=== PATIENT | male | born 1935 | race Caucasian/White ===

== ENCOUNTER → 2020-03-10 11:09 | Outpatient (BNVA) | payer MEDICARE, MEDICAID, SELFPAY | PROVIDERS: PCP Internal Medicine; Visit Provider Internal Medicine | DX: I26.99 Other pulmonary embolism without acute cor pulmonale (principal); Z51.81 Encounter for therapeutic drug level monitoring; Z79.01 Long term (current) use of anticoagulants | CPT/HCPCS: 85610; 99211 ==

== ENCOUNTER 2020-03-18 09:19 | Outpatient (REF) | payer MEDICARE, MEDICAID, SELFPAY ==
[2020-03-18 11:06] LABS: Prostate Specific Antigen 0.11 ng/mL (<0.05-4.0)
== END 2020-03-18 09:20 | disposition home or self-care (01) ==
LOC: HO.LAB 09:19
PROVIDERS: PCP Internal Medicine; Visit Provider Urology
DX: C61 Malignant neoplasm of prostate (principal)
CPT/HCPCS: 84153

== ENCOUNTER → 2020-03-29 11:26 | Outpatient (BNVA) | payer MEDICARE, MEDICAID, SELFPAY | PROVIDERS: PCP Internal Medicine; Visit Provider Internal Medicine | DX: I26.99 Other pulmonary embolism without acute cor pulmonale (principal); Z51.81 Encounter for therapeutic drug level monitoring; Z79.01 Long term (current) use of anticoagulants | CPT/HCPCS: 85610; 99211 ==

== ENCOUNTER → 2020-04-02 11:26 | Outpatient (BNVA) | payer MEDICARE, MEDICAID, SELFPAY | PROVIDERS: PCP Internal Medicine; Referring Provider Internal Medicine; Visit Provider Internal Medicine | DX: I26.99 Other pulmonary embolism without acute cor pulmonale (principal); Z51.81 Encounter for therapeutic drug level monitoring; Z79.01 Long term (current) use of anticoagulants | CPT/HCPCS: 85610; 99211 ==

== ENCOUNTER 2020-04-06 06:14 | Day surgery (SDC) | payer MEDICARE, MEDICAID, SELFPAY ==
[2020-03-18 11:53] VITALS: BMI 24.4
--- NOTE | 2020-03-19 09:25 | P.CONAN_ITS ---
HPI - Anesthesia Eval Consult details Narrative: 85yo M for cystoscopy [facility] Past Medical History Medical History (Updated 03/19/20 @ 09:42 by Prisca Mendiola) Angina pectoris Atrial fibrillation with rapid ventricular response Back pain Cardiomyopathy DVT (deep venous thrombosis) GERD (gastroesophageal reflux disease) Heart failure with reduced ejection fraction History of prostate cancer HTN (hypertension) Hx of osteoarthritis Hx of ventricular tachycardia Hx pulmonary embolism Hyperlipidemia Presence of combination internal cardiac defibrillator (ICD) and pacemaker Pure hypercholesterolemia Surgical History Surgical History (Updated 03/18/20 @ 12:03 by Janette Woods) Hx of colonoscopy Social History Social History Smoking Status: Unknown if ever smoked Advance Directives: No Advance Directives Information Provided: Yes Meds Allergies Allergy/AdvReac Type Severity Reaction Status Date / Time bacitracin Allergy Intermediate RASH Unverified 03/18/20 11:44 [From NEOSPORIN ([id number])] neomycin Allergy Intermediate RASH Unverified 03/18/20 11:44 [From NEOSPORIN ([id number])] polymyxin B Allergy Intermediate RASH Unverified 03/18/20 11:44 [From NEOSPORIN ([id number])] amoxicillin [Augmentin] Allergy Unknown rash Verified 03/18/20 11:44 clavulanic acid [Augmentin] Allergy Unknown rash Verified 03/18/20 11:44 Home Medications Medication Instructions Recorded Confirmed Type benzonatate 150 mg PO TID 03/18/20 03/18/20 History cholecalciferol (vitamin D3) 1 tab PO DAILY 03/18/20 03/18/20 History cyanocobalamin (vitamin B-12) 1,000 mcg PO DAILY 03/18/20 03/18/20 History esomeprazole magnesium 1 cap PO DAILY 03/18/20 03/18/20 History hydroxyzine HCl 1 tab PO BEDTIME PRN 03/18/20 03/18/20 History pantoprazole 1 tab PO DAILY 03/18/20 03/18/20 History sennosides [Senna Laxative] 2 tab PO BEDTIME 03/18/20 03/18/20 History torsemide 1 tab PO DAILY 03/18/20 03/18/20 History trazodone 1 tab PO BEDTIME PRN 03/18/20 03/18/20 History Exam Exam Date and Time: March 19, 2020 0925 Height,Weight and Vital Signs: Height 5 ft 3 in Weight 62.596 kg Assessment and Plan Assessment Anesthesia Assessment: Chart Reviewed
--- NOTE | 2020-04-05 12:00 | HO.ANESPROP2 ---
Documented by User: Prisca Mendiola 04/05/20 14:23 HPI - Anesthesia Eval Consult details Narrative: 85yo M for Cystoscopy,Poss Laser Bladder Neck,Poss Internal Uretherotomy PMFSH Past Medical History Medical History (Updated 03/19/20 @ 09:42 by Prisca Mendiola) Angina pectoris Atrial fibrillation with rapid ventricular response Back pain Cardiomyopathy DVT (deep venous thrombosis) GERD (gastroesophageal reflux disease) Heart failure with reduced ejection fraction History of prostate cancer HTN (hypertension) Hx of osteoarthritis Hx of ventricular tachycardia Hx pulmonary embolism Hyperlipidemia Presence of combination internal cardiac defibrillator (ICD) and pacemaker Pure hypercholesterolemia Surgical History Surgical History (Updated 03/18/20 @ 12:03 by Janette Woods) Hx of colonoscopy Social History Social History Smoking Status: Unknown if ever smoked Use of substances other than those prescribed or required for medical reasons: No Advance Directives: No Advance Directives Information Provided: No Advance Directives on File: No Meds Allergies Allergy/AdvReac Type Severity Reaction Status Date / Time bacitracin Allergy Intermediate RASH Verified 03/29/20 11:39 [From NEOSPORIN ([id number])] neomycin Allergy Intermediate RASH Verified 03/29/20 11:39 [From NEOSPORIN ([id number])] polymyxin B Allergy Intermediate RASH Verified 03/29/20 11:39 [From NEOSPORIN ([id number])] amoxicillin [Augmentin] Allergy Unknown rash Verified 03/29/20 11:39 clavulanic acid [Augmentin] Allergy Unknown rash Verified 03/29/20 11:39 Home Medications Medication Instructions Recorded Confirmed Type benzonatate 150 mg PO TID 03/18/20 04/02/20 History cyanocobalamin (vitamin B-12) 1,000 mcg PO DAILY 03/18/20 04/02/20 History esomeprazole magnesium 1 cap PO DAILY 03/18/20 04/02/20 History hydroxyzine HCl 1 tab PO BEDTIME PRN 03/18/20 04/02/20 History pantoprazole 1 tab PO DAILY 03/18/20 04/02/20 History sennosides [Senna Laxative] 2 tab PO BEDTIME 03/18/20 04/02/20 History torsemide 1 tab PO DAILY 03/18/20 04/02/20 History trazodone 1 tab PO BEDTIME PRN 03/18/20 04/02/20 History brimonidine 0.2 % eye drops 1 drp OPHTHALMIC (EYE) BID 04/02/20 04/02/20 History hydrocortisone 2.5 % topical cream applic TOPICAL DAILY 04/02/20 04/02/20 History Entresto 04/06/20 History Exam Exam Date and Time: April 05, 2020 1200 Height,Weight and Vital Signs: Height 5 ft 3 in Weight 62.596 kg Pertinent Lab Results Pertinent Lab Results: Laboratory Tests 10/15/19 10/15/19 02/03/20 11:20 11:20 15:06 WBC 7.8 Hgb 12.4 L Hct 38.0 L Plt Count 167 Potassium 3.8 Chloride 104 BUN 16 Creatinine 1.39 Narrative Narrative: Echo 03/2019: LVEF 45-50%, nml LV chamber size, mild conc LVH, global hypokenisis, Nml RV and mildly reduced RV global systolic function, No signif valve dysfunction ICD 07/2019: BIOTRONIK, VVI 40; VP0%, No new arrhythmias noted, Nml Device function Documented by User: Eddie Macario 04/06/20 08:12 PMFSH Past Medical History Medical History (Updated 03/19/20 @ 09:42 by Prisca Mendiola) Angina pectoris Atrial fibrillation with rapid ventricular response Back pain Cardiomyopathy DVT (deep venous thrombosis) GERD (gastroesophageal reflux disease) Heart failure with reduced ejection fraction History of prostate cancer HTN (hypertension) Hx of osteoarthritis Hx of ventricular tachycardia Hx pulmonary embolism Hyperlipidemia Presence of combination internal cardiac defibrillator (ICD) and pacemaker Pure hypercholesterolemia Surgical History Surgical History (Updated 03/18/20 @ 12:03 by Janette Woods) Hx of colonoscopy Social History Social History Smoking Status: Unknown if ever smoked Use of substances other than those prescribed or required for medical reasons: No Advance Directives: No Advance Directives Information Provided: No Advance Directives on File: No Meds Allergies Allergy/AdvReac Type Severity Reaction Status Date / Time bacitracin Allergy Intermediate RASH Verified 03/29/20 11:39 [From NEOSPORIN ([id number])] neomycin Allergy Intermediate RASH Verified 03/29/20 11:39 [From NEOSPORIN ([id number])] polymyxin B Allergy Intermediate RASH Verified 03/29/20 11:39 [From NEOSPORIN ([id number])] amoxicillin [Augmentin] Allergy Unknown rash Verified 03/29/20 11:39 clavulanic acid [Augmentin] Allergy Unknown rash Verified 03/29/20 11:39 Home Medications Medication Instructions Recorded Confirmed Type benzonatate 150 mg PO TID 03/18/20 04/02/20 History cyanocobalamin (vitamin B-12) 1,000 mcg PO DAILY 03/18/20 04/02/20 History esomeprazole magnesium 1 cap PO DAILY 03/18/20 04/02/20 History hydroxyzine HCl 1 tab PO BEDTIME PRN 03/18/20 04/02/20 History pantoprazole 1 tab PO DAILY 03/18/20 04/02/20 History sennosides [Senna Laxative] 2 tab PO BEDTIME 03/18/20 04/02/20 History torsemide 1 tab PO DAILY 03/18/20 04/02/20 History trazodone 1 tab PO BEDTIME PRN 03/18/20 04/02/20 History brimonidine 0.2 % eye drops 1 drp OPHTHALMIC (EYE) BID 04/02/20 04/02/20 History hydrocortisone 2.5 % topical cream applic TOPICAL DAILY 04/02/20 04/02/20 History Entresto 04/06/20 History Exam Airway Mallampati Class: III TM Dist: >3cm Neck ROM: Full Loose/Missing/Broken Teeth: Yes (Edentulous) Heart: RRR Assessment and Plan Assessment Anesthesia Assessment: Anesthesia Plan Discussed Final Anesthetic Review NPO: Yes ASA Class: IV Final Preanesthetic Review: Consent Obtained/Reviewed (Daughter signed) Anesthetic Plan Anesthetic Plan: GA Disposition: Standard PACU
[2020-04-06] VITALS (15 sets, daily range): BP systolic 108–167; BP diastolic 47–75; PULSE 65–93; RESP 16–20; TEMP 36.1–36.7; O2SAT 96–100
[2020-04-06 07:28] LABS: INTERNATIONAL NORM RATIO 1.4 (0.9-1.1); Prothrombin Time 16.8 SEC (10.8-13.0)
[2020-04-06] MEDS: Gentamicin Sulfate/NaCl 80 MG/100 ML PIGGYBACK 100 MG IV (07:38)
[2020-04-06] MEDS: levoFLOXacin/D5W 500 MG/100 ML PIGGYBACK 100 MG IV (07:39)
[2020-04-06] MEDS: Albuterol/Iprat 2.5/0.5MG 3 ML AMPUL.NEB INHALE (08:28)
--- NOTE | 2020-04-06 08:32 | PC.NURSE ---
patient receving resp treatment in pressured room. patient to go second not first. family and patient aware of plan of care.
--- NOTE | 2020-04-06 10:22 | PM.OP ---
Brief Operative Note Date of procedure: 04/06/20 Pre-op diagnosis: bph regrowth Post-op diagnosis: same Procedure: redo laser TURP Implants: foely catheter Surgeon: Benny Stephenson MD Anesthesia: GLMA Estimated blood loss (mL): 10 Pathology: other (prostate) Condition: stable Disposition: same day
[2020-04-06] MEDS: traMADoL HCL 50 MG TABLET PO (10:37)
--- NOTE | 2020-04-06 10:37 | P.OP_ITS ---
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 Presented to the office with difficulty with urination. On cystoscopy in the office the appeared to be narrowing of bladder neck. Recommendation for cystoscopy with laser of bladder neck. Appear to have prior prostate procedure. Procedure: After informed consent was verified patient brought to the operating room placed in a supine position. Anesthesia administered per protocol. Patient tasha nelda in a modified dorsal lithotomy position and prepped and draped in sterile fashion. Safety pause performed. Antibiotics have been given. Twenty-one Bhutanese cystoscope inserted per urethra. At the prostatic apex year appeared to be some rigidity in narrowing. We placed a Sensor guidewire. We then followed the Sensor guidewire we could see there was recurrent prostate growth particularly on the left side that was causing a form of obstruction. The bladder neck itself was open. The cystoscope was removed. A laser cystoscope was placed. Using a dual wavelength laser the recurrent tissue was ablated and enucleated on the left side wall. Once this was complete the bladder was irrigated in tissue obtained for pathology. A [address] Muir catheter was placed in the balloon placed on gentle traction until he arrives at the recovery area. The bladder had been irrigated and sample sent. he tolerated the procedure well was extubated in operating room and transferred in stable condition to recovery area. Pathology. Prostate tissue Drain. Twenty-two Bhutanese Muir catheter.
[2020-04-06] MEDS: fentaNYL citrate/PF 100 MCG/2 ML VIAL 25 MCG IVPUSH (11:13)
--- NOTE | 2020-04-06 14:08 | HO.POSTANES ---
Post Anesthesia Evaluation Post Anesthesia Evaluation Vital Signs: Vital Signs Temp Pulse Resp BP Pulse Ox 04/06/20 12:37 97.0 F 79 18 108/47 L 100 04/06/20 12:22 93 19 163/58 H 100 04/06/20 12:07 78 20 167/62 H 96 04/06/20 11:52 80 20 151/70 H 97 04/06/20 11:37 81 19 150/69 H 99 04/06/20 11:22 77 20 149/52 H 100 04/06/20 11:13 18 04/06/20 11:11 73 20 164/52 H 99 04/06/20 11:00 80 20 148/72 H 100 04/06/20 10:49 77 20 135/63 100 04/06/20 10:44 84 20 134/62 100 04/06/20 10:39 76 19 129/68 100 04/06/20 10:34 77 17 145/69 H 99 04/06/20 10:29 97.0 F 77 18 145/75 H 97 04/06/20 07:31 98.0 F 65 16 114/54 L 100 Anesthesia: General LMA Mental Status: Awake Pain Control: Satisfactory Nausea/Vomiting: None Hydration: Adequate Anesthesia-Related Issues: No Anes. Related Issues
--- NOTE | 2020-04-06 15:28 | PC.NURSE ---
POST OP INSTRUCTIONS AND VAUGHN CATHETER CARE INSTRUCTIONS GIVEN TO , HAS DONE THIS BEFORE BUT IT HAS BEEN MANY YEARS PER HER STATEMENT, REQUESTING PAIN MED, CALL TO DR TUNG NGUYEN FOR TRAMADOL TO BE SENT TO THE PHARMACY. PAIN 410 ON DISCHARGE
== END 2020-04-06 14:00 | disposition home or self-care (01) ==
PROVIDERS: Nurse Practitioner; PCP Internal Medicine; Visit Provider Urology
PROC: 0TJB8ZZ Inspection of Bladder, Via Natural or Artificial Opening Endoscopic (ICD-10-PCS; CPT 52000; principal; 2020-04-06 08:30)
DX: C67.5 Malignant neoplasm of bladder neck (principal); N40.1 Benign prostatic hyperplasia with lower urinary tract symptoms; R39.198 Other difficulties with micturition; R31.0 Gross hematuria; Z85.46 Personal history of malignant neoplasm of prostate; I11.0 Hypertensive heart disease with heart failure; I50.20 Unspecified systolic (congestive) heart failure; I48.91 Unspecified atrial fibrillation; Z95.810 Presence of automatic (implantable) cardiac defibrillator; Z86.711 Personal history of pulmonary embolism; Z86.718 Personal history of other venous thrombosis and embolism; Z79.01 Long term (current) use of anticoagulants; Z79.899 Other long term (current) drug therapy; Z88.1 Allergy status to other antibiotic agents
CPT/HCPCS: 52649; 36415; 85610; 88305; 88341; 88342; C1769; J0131; J1580; J1956; J2250; J3010

== ENCOUNTER 2020-04-08 12:43 | Emergency (ER) | payer MEDICARE, MEDICAID, SELFPAY ==
[2020-04-08 13:02] VITALS: BP 128/36; PULSE 91; RESP 18; TEMP 37.1; O2SAT 95; BMI 20.6
--- NOTE | 2020-04-08 13:09 | XR_ITS ---
EXAMINATION: XR KNEE, RIGHT CLINICAL INFORMATION: Right knee swelling and pain. No known trauma COMPARISON: Radiographs right knee 07/22/2016. TECHNIQUE: The right knee is imaged portably in AP and 2 lateral views. FINDINGS: There is no fracture, dislocation, destructive process. Moderate suprapatellar effusion is present. There is joint narrowing, greatest lateral compartment with mild subchondral sclerosis and associated borderline marginal osteophytes lateral femoral condyle and lateral tibial plateau. There is chondrocalcinosis involving the articular cartilage and menisci. No visible erosive changes. XR/XR knee RT 2V IMPRESSION: 1. Arthritis with lateral compartment joint narrowing with associated medial and lateral compartment chondrocalcinosis and moderate suprapatellar effusion. 2. No fracture, dislocation, or destructive process.
--- NOTE | 2020-04-08 13:12 | ED_ITS ---
HPI - General Adult General Chief complaint: Dyspnea Stated complaint: BLOOD IN VAUGHN BAG,RIGHT KNEE PAIN Time Seen by Provider: 04/08/20 12:56 Source: patient Mode of arrival: ambulatory Limitations: no limitations History of Present Illness HPI narrative: patient comes to emergency room complaining of passing clots through his Vaughn catheter, and right knee pain. Patient had a cystoscopy 04/06/2020, patient was diagnosed with a narrowing of the bladder neck. Vaughn was inserted. Patient now passing small clots, still able to pass urine. Patient states it martinez when he urinates. Patient also complaining of right knee pain. States he noticed that his knee started getting more swollen approximately 3 days ago, no trauma, at this time he has no pain but if he tries to bear weight that is when it starts hurting. MD complaint: Hematuria, right knee pain Related Data Home Medications Medication Instructions Recorded Confirmed benzonatate 150 mg PO TID 03/18/20 04/02/20 cyanocobalamin (vitamin B-12) 1,000 mcg PO DAILY 03/18/20 04/02/20 esomeprazole magnesium 1 cap PO DAILY 03/18/20 04/02/20 hydroxyzine HCl 1 tab PO BEDTIME PRN 03/18/20 04/02/20 pantoprazole 1 tab PO DAILY 03/18/20 04/02/20 sennosides [Senna Laxative] 2 tab PO BEDTIME 03/18/20 04/02/20 torsemide 1 tab PO DAILY 03/18/20 04/02/20 trazodone 1 tab PO BEDTIME PRN 03/18/20 04/02/20 brimonidine 0.2 % eye drops 1 drp OPHTHALMIC (EYE) BID 04/02/20 04/02/20 hydrocortisone 2.5 % topical cream applic TOPICAL DAILY 04/02/20 04/02/20 Entresto 04/06/20 Previous Rx's Medication Instructions Recorded sacubitril 24 mg-valsartan 26 mg 1 tab PO BID 90 Days #180 tab 03/05/20 tablet amiodarone 100 mg tablet 100 mg PO DAILY 90 Days #90 tab 03/06/20 simvastatin 40 mg tablet 40 mg PO BEDTIME 90 Days #90 tab 03/12/20 carvedilol 3.125 mg tablet 3.125 mg PO BID #180 tab 03/16/20 warfarin 1 mg tablet 100f2 mg PO DAILY #180 tab 03/23/20 cholecalciferol (vitamin D3) 50 50 mcg PO DAILY #90 tab 03/29/20 mcg (2,000 unit) tablet tramadol 50 mg PO Q6H PRN #14 tab 04/06/20 trimethoprim 100 mg PO Q12H 10 Days #20 tab 04/06/20 oxybutynin chloride 5 mg 5 mg PO DAILY #5 tab 04/07/20 tablet,extended release 24 hr Allergies Allergy/AdvReac Type Severity Reaction Status Date / Time bacitracin Allergy Intermediate RASH Verified 03/29/20 11:39 [From NEOSPORIN ([id number])] neomycin Allergy Intermediate RASH Verified 03/29/20 11:39 [From NEOSPORIN ([id number])] polymyxin B Allergy Intermediate RASH Verified 03/29/20 11:39 [From NEOSPORIN ([id number])] amoxicillin [Augmentin] Allergy Unknown rash Verified 03/29/20 11:39 clavulanic acid [Augmentin] Allergy Unknown rash Verified 03/29/20 11:39 [facility] Past Medical History Medical History (Updated 04/08/20 @ 17:00 by Marion Corrigan MD) Angina pectoris Atrial fibrillation with rapid ventricular response Back pain Cardiomyopathy DVT (deep venous thrombosis) GERD (gastroesophageal reflux disease) Heart failure with reduced ejection fraction History of prostate cancer HTN (hypertension) Hx of osteoarthritis Hx of ventricular tachycardia Hx pulmonary embolism Hyperlipidemia Presence of combination internal cardiac defibrillator (ICD) and pacemaker Pure hypercholesterolemia Surgical History (Updated 03/18/20 @ 12:03 by Janette Woods) Hx of colonoscopy Social History Social History Alcohol intake: unknown Smoking Status: Unknown if ever smoked Use of substances other than those prescribed or required for medical reasons: No Advance Directives: No Advance Directives Information Provided: No Physical Exam Vital Signs: Vital Signs: Vital Signs Temp Pulse Resp BP Pulse Ox 04/08/20 16:27 95 18 118/82 04/08/20 15:40 98.9 F 91 18 106/49 L 95 04/08/20 13:02 98.8 F 91 18 128/36 L 95 Body Mass Index 20.6 Course Course Course Narrative: Patient's white blood cell count is 14.2, urinalysis has been pending. If positive, please treat and discharged home with antibiotics. At this time, sepsis is not suspected. Lactic acid pending. Sign-out given to Dr. Alvarez. Medical Decision Making Lab Data Result diagrams: 04/08/20 14:28 04/08/20 14:55 Labs: Lab Results 04/08/20 04/08/20 04/08/20 Range/Units 14:28 14:55 14:55 WBC 14.2 H (4.8-10.8) X10*3/uL RBC 4.54 L (4.60-5.80) X10*6/uL Hgb 13.9 L (14.0-18.0) g/dl Hct 41.4 L (42-52) % MCV 91.2 (80-98) fL MCH 30.6 (27.0-33.0) pg MCHC 33.6 (31.0-36.0) g/dl RDW 15.8 (11.0-16.0) % Plt Count 177 (160-400) X10*3/uL MPV 11.2 (9.4-12.4) fL Immature Gran % (Auto) 0.4 (0.0-0.4) % Neut % (Auto) 80.1 H (45-73) % Lymph % (Auto) 8.4 L (20-40) % Elmore % (Auto) 10.9 (2-11) % Eos % (Auto) 0.0 (0-4) % Baso % (Auto) 0.2 (0-2) % Lymph # (Auto) 1.2 (1.2-4.9) X10*3/uL Elmore # (Auto) 1.6 H (0.1-1.2) X10*3/uL Eos # (Auto) 0.0 (0.0-0.4) X10*3/uL Baso # (Auto) 0.0 (0.0-0.2) X10*3/uL Abs Immat Gran (auto) 0.06 H (0.00-0.03) X10*3/uL Absolute Neuts (auto) 11.4 H (2.0-8.3) X10*3/uL Absolute Nucleated RBC 0.000 (0.0-0.012) X10*3/uL Nucleated RBC % (auto) 0.0 (0.0-0.2) /100WBC Smear Tech's Comments VERIFIED PT 21.3 H D (10.8-13.0) SEC INR 1.8 H (0.9-1.1) Sodium 140 (135-145) mmol/L Potassium 4.4 (3.3-5.1) mmol/l Chloride 99 (96-108) mmol/L Carbon Dioxide 29 (22-29) mmol/L Anion Gap 16 (12-20) BUN 15 (9-16) mg/dL Creatinine 1.31 (0.5-1.4) mg/dL Estim Creat Clear Calc 33.8 Estimated GFR 52 Random Glucose 148 H (60-115) mg/dL Uric Acid 8.4 H (3.4-7.0) mg/dL Calcium 8.3 L (8.4-10.2) mg/dL Discharge Plan Discharge Clinical Impression: Hematuria Prescriptions: No Action Entresto 24-26 mg tablet 1 tab PO BID 90 Days Qty: 180 RF: 0 amiodarone 100 mg tablet 100 mg PO DAILY 90 Days Qty: 90 RF: 3 simvastatin 40 mg tablet 40 mg PO BEDTIME 90 Days Qty: 90 RF: 4 carvedilol 3.125 mg tablet 3.125 mg PO BID Qty: 180 RF: 1 warfarin 1 mg tablet 100f2 mg PO DAILY Qty: 180 RF: 1 cholecalciferol (vitamin D3) 50 mcg (2,000 unit) tablet 50 mcg PO DAILY Qty: 90 RF: 3 oxybutynin chloride 5 mg tablet extended release 24hr 5 mg PO DAILY Qty: 5 RF: 0 sennosides [Senna Laxative] 8.6 mg tablet 2 tab PO BEDTIME RF: 0 torsemide 20 mg tablet 1 tab PO DAILY RF: 0 trazodone 50 mg tablet 1 tab PO BEDTIME PRN (Reason: Sleep) RF: 0 pantoprazole 20 mg tablet,delayed release (DR/EC) 1 tab PO DAILY RF: 0 esomeprazole magnesium 40 mg capsule,delayed release(DR/EC) 1 cap PO DAILY RF: 0 hydroxyzine HCl 25 mg tablet 1 tab PO BEDTIME PRN (Reason: Sleep) RF: 0 benzonatate 150 mg Capsule 150 mg PO TID RF: 0 cyanocobalamin (vitamin B-12) 1,000 mcg Capsule 1,000 mcg PO DAILY RF: 0 Entresto RF: 0 trimethoprim 100 mg tablet 100 mg PO Q12H 10 Days Qty: 20 RF: 0 tramadol 50 mg tablet 50 mg PO Q6H PRN (Reason: pain (scale score 1-3)) Qty: 14 RF: 0 brimonidine 0.2 % drops 1 drp ophthalmic (eye) BID RF: 0 hydrocortisone 2.5 % cream topical DAILY RF: 0
--- NOTE | 2020-04-08 14:35 | PC.NURSE ---
patient is tough blood draw. called pleb lab for draw.
[2020-04-08 14:40] LABS: Basophils Percent Auto 0.2 % (0-2); Hematocrit 41.4 % (42-52); Hemoglobin 13.9 g/dl (14.0-18.0); Imm Gran Abs Auto 0.06 X10*3/uL (0.00-0.03); Imm Gran Pct Auto 0.4 % (0.0-0.4); Lymphocytes Absolute Auto 1.2 X10*3/uL (1.2-4.9); Lymphocytes Percent Auto 8.4 % (20-40); MANUAL DIFF FLAG SCAN; Mean Corpuscular HGB Conc 33.6 g/dl (31.0-36.0); Mean Corpuscular Hemoglobin 30.6 pg (27.0-33.0); Mean Corpuscular Volume 91.2 fL (80-98); Mean Platelet Volume 11.2 fL (9.4-12.4); Monocytes Absolute Auto 1.6 X10*3/uL (0.1-1.2); Monocytes Percent Auto 10.9 % (2-11); Neutrophils Absolute Auto 11.4 X10*3/uL (2.0-8.3); Neutrophils Percent Auto 80.1 % (45-73); Platelet Count 177 X10*3/uL (160-400); Red Blood Count 4.54 X10*6/uL (4.60-5.80); Red Cell Distribution Width 15.8 % (11.0-16.0); SCAN SMEAR FLAG 1; White Blood Count 14.2 X10*3/uL (4.8-10.8)
[2020-04-08 15:01] LABS: SLIDE REVIEW VERIFIED
[2020-04-08 15:15] LABS: INTERNATIONAL NORM RATIO 1.8 (0.9-1.1); Prothrombin Time 21.3 SEC (10.8-13.0)
[2020-04-08 15:37] LABS: Anion Gap 16 (12-20); Blood Urea Nitrogen 15 mg/dL (9-16); Calcium 8.3 mg/dL (8.4-10.2); Carbon Dioxide 29 mmol/L (22-29); Chloride 99 mmol/L (96-108); Creatinine Clr Calc Pharmacy 33.8; Estimated Glomerular Filt Rate 52; Glucose Random 148 mg/dL (60-115); Potassium 4.4 mmol/l (3.3-5.1); Sodium 140 mmol/L (135-145); Uric Acid 8.4 mg/dL (3.4-7.0)
[2020-04-08 15:40] VITALS: BP 106/49; PULSE 91; RESP 18; TEMP 37.2; O2SAT 95
[2020-04-08 16:27] VITALS: BP 118/82; PULSE 95; RESP 18
[2020-04-08 17:39] LABS: Glucose Urine UA NEG (NEG); Leukocyte Esterase Urine 1+ (NEG); Nitrite Urine NEG (NEG); PH 6.5 (5.0-8.0); Urine Blood 3+ (NEG); Urine Ketones NEG (NEG); Urine Protein NEG (NEG-TRACE)
[2020-04-08 17:46] LABS: Appearance Urine CLEAR; Color Urine STRAW
[2020-04-08 18:27] LABS: Squamous Epithelial Cell Urine TRACE /LPF; WBC Urine 0-2 /HPF (0-4)
[2020-04-08 22:00] VITALS: BP 117/68; PULSE 95; RESP 18; TEMP 36.6; O2SAT 95
--- NOTE | 2020-04-08 22:35 | PC.NURSE ---
multiple attempted calls made with daughter . no answer but left message. no further complaints of patient. it was explained in report that daughter was concerned with taking patient home due to difficulty ambulating
--- NOTE | 2020-04-09 00:03 | PC.NURSE ---
Pt moved from room 4 to room 21. Plan for Case management/ PT consult in the morning.
--- NOTE | 2020-04-09 04:04 | PC.NURSE ---
Pt requesting food and drink per pct, pt provided with jello and water, soon after pt was noted to be vomiting into an emesis bag. MD parker.
[2020-04-09 04:50] LABS: SARS COV2 PCR INHOUSE NEGATIVE (Negative)
--- NOTE | 2020-04-09 05:41 | XR_ITS ---
EXAMINATION: XR CHEST CLINICAL INFORMATION: Cough COMPARISON: 06/18/2019 TECHNIQUE: Portable 6:48 AM view of the chest was obtained. FINDINGS: Single-lead pacer device intact and stable. Lungs remain clear. Minor biapical irregular pleural scarring again noted. Expansile lucent lesion left mid to distal humeral diaphysis again noted. No pathologic fracture. Ill-defined sclerotic focus more proximally noted subcortical location. No significant abnormality is noted otherwise involving the heart, lungs, mediastinum, bony thorax or soft tissues. XR/XR chest 1V IMPRESSION: No infiltrate. Bony lesions as above nonspecific. In and older patient, multiple myeloma versus metastatic disease should be considered.
[2020-04-09 05:54] VITALS: BP 135/56; PULSE 87; RESP 16; TEMP 36.9; O2SAT 96
[2020-04-09 06:12] LABS: Alanine Aminotransferase 14 U/L (0-40); Albumin Level 3.5 g/dL (3.5-5.0); Alkaline Phosphatase 72 U/L (39-117); Aspartate Amino Transferase 24 U/L (5-37); Bilirubin Direct 0.3 mg/dL (0.0-0.5); Bilirubin Total 0.7 mg/dL (0.0-1.0); Total Protein 6.6 g/dL (6.5-8.0)
--- NOTE | 2020-04-09 06:36 | PC.NURSE ---
This RN attempted twice with no success to insert IV, Patricia RN in to room to try an IV insertion with no success. aware.
--- NOTE | 2020-04-09 08:07 | CT_ITS ---
EXAMINATION: CT ABDOMEN AND PELVIS WITHOUT CONTRAST CLINICAL INFORMATION: Abdominal pain. COMPARISON: CT abdomen and pelvis 02/06/2020 TECHNIQUE: Multidetector volumetric imaging was performed from the superior aspect of the liver through the pubic symphysis. Sagittal and coronal reformatted images were obtained on the technologist's workstation. This CT examination was performed using dose optimization techniques as appropriate, variously including the following: *Automated exposure control *Adjustment of mA and/or kV according to patient size (this includes techniques or standardized protocols for targeted exams where dose is matched to indication/reason for exam; i.e. extremities or head) *Use of iterative reconstruction technique DLP: 510 mGy-cm FINDINGS: LUNG BASES: There is bibasilar compressive atelectasis. The heart size is mildly enlarged. Solitary pacer electrodes seen in the right ventricle. LIVER, GALLBLADDER, AND BILIARY TREE: The liver is normal in size, shape, and attenuation. There is a 7 mm hypodensity in the left hepatic lobe. The right hepatic lobe appears unremarkable. No intrahepatic ductal dilatation is seen. There is hyperdense bile seen along the dependent portion. No radiopaque calculi or wall thickening. PANCREAS: Unremarkable. SPLEEN: Spleen is unremarkable with small accessory splenule adjacent to it. ADRENAL GLANDS: Unremarkable. KIDNEYS AND URETERS: The kidneys are normal in size, shape, and attenuation. No hydronephrosis, hydroureter, or calculi seen. No perinephric stranding. Bilateral exophytic renal cysts with the left renal cyst measuring 1.9 cm and the right kidney cyst measuring 2 cm. BLADDER: The prostate gland is distended with thickening and a Muir's catheter within. GASTROINTESTINAL TRACT: There is moderate scattered stool seen in the right colon. There is scattered stool and gas in the left colon and the small bowel loops. The appendix is not seen with certainty. The stomach is non-distended, no free fluid or free air seen. ABDOMINAL WALL: There is small umbilical hernia containing a 7 mm soft tissue density/nodule. LYMPH NODES: No abnormal lymph nodes are seen. VASCULAR: There is an infrarenal IVC filter. The abdominal aorta is atherosclerotic and ectatic. Mild ectatic common iliac arteries are noted as well. No aneurysmal dilatation is seen. PELVIC VISCERA: No free fluid or free air is seen. OSSEOUS STRUCTURES: There are compression deformities at T10, T11, T12 and cemented compression fracture L5 vertebra. Moderate spondylosis is seen throughout the lumbar spine. Lucency is seen in the bilateral femoral heads likely osteopenia. CT/CT abdomen pelvis wo con IMPRESSION: There is diffuse bladder wall thickening with a Muir catheter within. 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 Mild constipation without obstruction. Appendix is not seen.
[2020-04-09 09:02] VITALS: BP 109/86; PULSE 76; RESP 18
[2020-04-09 10:13] VITALS: BP 109/86; PULSE 76
[2020-04-09 12:02] VITALS: PULSE 88; RESP 18; TEMP 37.1
--- NOTE | 2020-04-09 13:46 | MHC.CM.ED ---
Received case management consult overnight. Patient came to ER due to hematuria and weakness. Physical therapy eval completed. STR is recommended. Atttempted to meet with patient in regards to d/c planning. Patient currently sleeping. Spoke with patient's daughter/HCP, Michela via telephone. PCP verified. 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 Patient has been to [facility] in the past. Michela requesting referral there. Referral made via allscripts. [facility] is able to offer a bed. Patient can leave at 2pm. [facility] booked. [facility] with chart. Patient, Michela, Dr Cunningham and Santino RN aware. Continue to monitor for d/c needs.
== END 2020-04-09 14:53 | disposition skilled nursing facility (03) ==
PROVIDERS: Internal Medicine; Student in an Organized Health Care Education/Training Program; Emergency Provider Emergency Medicine; PCP Internal Medicine
DX: R31.9 Hematuria, unspecified (principal); M25.561 Pain in right knee; Z79.899 Other long term (current) drug therapy; Z20.828 Contact with and (suspected) exposure to other viral communicable diseases
CPT/HCPCS: 36415; 71045; 73560; 74176; 80048; 80076; 81001; 84550; 85025; 85610; 87086; 96361; 96365; 97162; 99284; 99285; U0003

== ENCOUNTER → 2020-05-10 15:03 | Outpatient (BNVA) | payer MEDICARE, MEDICAID, SELFPAY | PROVIDERS: PCP Internal Medicine; Visit Provider Internal Medicine | DX: I26.99 Other pulmonary embolism without acute cor pulmonale (principal); Z51.81 Encounter for therapeutic drug level monitoring; Z79.01 Long term (current) use of anticoagulants | CPT/HCPCS: Q3014 ==

== ENCOUNTER → 2020-05-13 14:27 | Outpatient (BNVA) | payer MEDICARE, MEDICAID, SELFPAY | PROVIDERS: PCP Internal Medicine; Visit Provider Internal Medicine | DX: I26.99 Other pulmonary embolism without acute cor pulmonale (principal); Z51.81 Encounter for therapeutic drug level monitoring; Z79.01 Long term (current) use of anticoagulants | CPT/HCPCS: Q3014 ==

== ENCOUNTER → 2020-05-20 13:06 | Outpatient (BNVA) | payer MEDICARE, MEDICAID, SELFPAY | PROVIDERS: PCP Internal Medicine; Visit Provider Internal Medicine | DX: I26.99 Other pulmonary embolism without acute cor pulmonale (principal); Z79.01 Long term (current) use of anticoagulants; Z51.81 Encounter for therapeutic drug level monitoring | CPT/HCPCS: Q3014 ==

== ENCOUNTER → 2020-05-26 15:56 | Outpatient (BNVA) | payer MEDICARE, MEDICAID, SELFPAY | PROVIDERS: PCP Internal Medicine; Visit Provider Internal Medicine | DX: Z76.89 Persons encountering health services in other specified circumstances (principal) ==

== ENCOUNTER 2020-06-02 14:44 | Outpatient (REF) | payer MEDICARE, MEDICAID, SELFPAY ==
[2020-06-02 14:57] LABS: Glucose Urine UA NEG (NEG); Leukocyte Esterase Urine 3+ (NEG); Nitrite Urine NEG (NEG); PH 6.5 (5.0-8.0); Urine Blood 1+ (NEG); Urine Ketones NEG (NEG); Urine Protein NEG (NEG-TRACE)
[2020-06-02 14:59] LABS: Appearance Urine CLOUDY; Color Urine YELLOW
[2020-06-02 15:09] LABS: RBC Urine 0-2 /HPF (0)
== END 2020-06-02 14:45 | disposition home or self-care (01) ==
LOC: HO.LNP 14:44
PROVIDERS: Visit Provider Internal Medicine
DX: R35.0 Frequency of micturition (principal)
CPT/HCPCS: 81001; 87086

== ENCOUNTER 2020-06-09 14:59 | Outpatient (REF) | payer MEDICARE, MEDICAID, SELFPAY | END 2020-06-09 15:00 | disposition home or self-care (01) | LOC: HO.LNP 14:59 | PROVIDERS: Visit Provider Internal Medicine Hematology & Oncology | DX: Z20.828 Contact with and (suspected) exposure to other viral communicable diseases (principal) | CPT/HCPCS: U0003 ==